=== PATIENT | male | born 1975 | race African-American/Black ===

== ENCOUNTER 2016-03-27 10:32 | Emergency (ER) | payer MEDICAID ==
[2016-03-27 11:38] VITALS: BP 156/99
== END 2016-03-27 13:30 | disposition left against medical advice (07) ==
LOC: ER 10:32
DX: Z53.21 Procedure and treatment not carried out due to patient leaving prior to being seen by health care provider (principal)

== ENCOUNTER 2016-11-02 10:30 | Emergency (ER) | payer MEDICAID ==
[2016-11-02 10:40] VITALS: BP 142/98
--- NOTE | 2016-11-02 10:53 | ERNOTE ---
Date of Service: 11/02/16 Time Seen by Provider: 11/02/16 10:41 Stated Complaint: COLD Presenting Symptoms:: cough, sore throat, runny nose, fever, other - sinus and chest congestion Source: patient Exam Limitations: no limitations Immunizations: IMMUNIZATION HX Immunizations Up to Date Yes History of Influenza Vaccine Yes Hx Pneumococcal Vaccination No Allergies/Adverse Reactions: Allergies shellfish derived Allergy (Mild, Verified 11/02/16 10:39) SWELLING Home Medications: HOME MEDICATIONS Albuterol Sulfate 2.5 mg IH Q4H PRN 03/11/15 [Last Taken Unknown] Budesonide [Pulmicort Respules] 2 ml IH BID 03/11/15 [Last Taken Unknown] Montelukast Sodium [Singulair] 10 mg PO DAILY 05/30/15 [Last Taken Unknown] traMADol HCL [Ultram] 1 tab PO QID #20 tablet 07/02/15 [Last Taken Unknown] Naproxen [Naprosyn] 500 mg PO BID PRN #60 tab 12/02/15 [Last Taken Unknown] tiZANidine HCL [Tizanidine HCl] 2 mg PO QID #20 capsule 12/02/15 [Last Taken Unknown] Doxycycline Monohydrate 100 mg PO BID #20 tablet 11/02/16 [Last Taken Unknown] predniSONE [Prednisone] 3 tab PO DAILY #9 tab 11/02/16 [Last Taken Unknown] - History of Present Ilness Narrative: Pt. with known hx of asthma comes in with c/o cough, chest congestion, fever, sinus congestion, rhinorrhea, and increased use of nebulizer treatments for four days. Pt. has a known history of asthma and states that symptoms are usually controlled with his rescue nebulizer occasionally but it has been worse recently. Pt. denies any CP, NVD, numbness, tingling, headache, or SOB. Pt. denies any alleviating or aggravating factors. Review of Systems - Review of Systems Constitutional: Present: fever, chills, diaphoresis, fatigue, malaise EYE: Present: no symptoms reported ENT: Present: nose congestion, nasal drainage - purulent, sore throat. Absent: ear pain Respiratory: Present: cough, wheezing. Absent: shortness of breath Cardiology: Present: no symptoms reported. Absent: chest pain, palpitations, edema Gastrointestinal/Abdominal: Present: no symptoms reported. Absent: nausea, vomiting, diarrhea Skin: Present: no symptoms reported. Absent: rash, dryness, lesions, change in color Neurological: Present: no symptoms reported. Absent: headache, dizziness/light- headedness, weakness, numbness All Other Systems: All systems neg except as marked - Patient's Past Medical History Patient History - Medical: Chronic Pain Patient History - Cardiac/Respiratory: Asthma Patient History - Cancer: No Hx of Cancer Patient History - Surgical Procedures: No surgical history Patient History - Other: None - Family History Mother Family History - Medical: History Unknown Father Family History - Medical: No pertinent hx - Social History Living Situations: home Abuse History: No History of abuse Psych History: No pertinent hx Does anyone smoke in the home?: Yes Alcohol Use: none Drug Use: none - Immunizations Immunizations Up to Date: Yes Hx Pneumococcal Vaccination: No History of Influenza Vaccine: Yes Physical Exam - Physical Exam General Appearance: Present: wd/wn, alert, no apparent distress Head Exam: Present: normal inspection, no evidence of injury Eye Exam: Normal inspection: bilateral, PERRL: bilateral, EOMI: bilateral Ears, Nose, Throat: Present: nasal congestion, pharyngeal erythema. Absent: abnormal TM (R), abnormal TM (L), dry mucous membranes Neck: Present: normal inspection, nontender. Absent: lymphadenopathy (R), lymphadenopathy (L) Respiratory: Present: no respiratory distress, no accessory muscle use, chest nontender, lungs clear, decreased breath sounds - bases Cardiovascular/Chest: Present: regular rate, rhythm, no murmur, normal peripheral pulses Gastrointestinal/Abdominal: Present: normal bowel sounds, nontender, nondistended, soft, no organomegaly Back Exam: Present: normal inspection Extremity Exam: Present: normal inspection Neurological Exam: Present: alert, oriented, normal mood/affect, no motor/ sensory deficits Skin Exam: Present: normal color, warm/dry. Absent: pallor ED Progress - Results and Orders Patient's Lab Results:: I have reviewed the patient's lab results. - Vital Signs Patient's Vital Signs:: I have reviewed the patient's vital signs. Vital Signs: Vital Signs 11/02/16 10:37 Temperature 36.3 C L Pulse Rate 84 Respiratory 12 Rate Blood Pressure 142/98 O2 Sat by Pulse 98 Oximetry - X-Ray X-Ray #1 X-Ray: chest Interpretation: Interp. by me X-ray Comments: No consolidation or infiltrate. Acute vs chronic reactive airway disease appearance - Progress/Reassessment Chief Complaint: Upper Respiratory Symptoms Progress:: Unchanged Departure - Departure Clinical Impression: Bronchitis Asthma Qualifiers: Asthma severity: mild intermittent Asthma complication type: with acute exacerbation Qualified Code(s): J45.21 - Mild intermittent asthma with (acute) exacerbation Disposition: Home self-care Condition: Good Instructions: Acute Bronchitis Additional Instructions: Please follow up with Dr Prabha byrnes in 2-3 days. Referrals: Pablo Rico MD [Primary Care Provider] - Prescriptions: Doxycycline Monohydrate 100 mg PO BID #20 tablet predniSONE [Prednisone] 3 tab PO DAILY #9 tab
== END 2016-11-02 12:00 | disposition home or self-care (01) ==
LOC: ER 10:30
DX: J40 Bronchitis, not specified as acute or chronic (principal); J45.21 Mild intermittent asthma with (acute) exacerbation

== ENCOUNTER 2016-11-12 09:25 | Day surgery (SDC) | payer MEDICAID ==
--- NOTE | 2016-11-12 10:23 | OR ---
Anesthesia Pre Procedure Eval Pre Procedure Evaluation: Last Vital Signs Temp 36.7 C 11/12/16 09:42 Pulse 74 11/12/16 09:42 Resp 18 11/12/16 09:42 BP 155/89 11/12/16 09:42 Pulse Ox 97 11/12/16 09:42 O2 Oxygen Delivery Method Room Air +PRE PROCEDURE EVALUATION:: DATE: 11/12/2016 TIME: 10:15 INDICATIONS: Radicular low back pain. Disc protrusion L4 5. Left foraminal narrowing at L4 5. PAST MEDICAL HISTORY: Patient has had an epidural steroid injection in June 2015. That injection provided some relief. His back pain has since returned along with left hip and leg numbness at times. EXAM: Lungs clear and equal. Heart rate regular. Procedure risks and benefits were explained to and accepted by the patient. ASSESSMENT OF MEDICAL STATUS: No contraindication to epidural steroid injection. PLANNED PROCEDURE : Fluoroscopy guided epidural steroid injection at L4 5 Home Medications: HOME MEDICATIONS Albuterol Sulfate 2.5 mg IH Q4H PRN 03/11/15 [Last Taken Unknown] Ciclopirox [Penlac 8%] 1 appl TP DAILY 11/10/16 [Last Taken Unknown] Gabapentin 800 mg PO QID 11/10/16 [Last Taken Unknown] Mometasone Furoate [Asmanex] 2 puff IH DAILY 11/10/16 [Last Taken Unknown] Polyethylene Glycol 3350 [Miralax] 17 gm PO DAILY 11/10/16 [Last Taken Unknown] Psyllium Husk (with Sugar) [Metamucil Powder] 1 tbs PO DAILY 11/10/16 [Last Taken Unknown] traMADol HCL [Ultram] 1 tab PO Q6H PRN 11/10/16 [Last Taken Unknown]
[2016-11-12] MEDS: IOPAMIDOL 20 ML VIAL IJ ONE (10:38)
[2016-11-12] MEDS: DEXAMETHASONE SOD PHOSPHATE 10 MG/ML VIAL IJ ONE (10:38)
[2016-11-12] MEDS: LIDOCAINE HCL/PF 5 ML VIAL IJ ONE (10:38)
--- NOTE | 2016-11-12 10:46 | OR ---
Anesthesia Procedure Note - Anesthesia Procedure Note Narrative: Vital Signs - Last Taken Temp 36.7 C 11/12/16 09:42 Pulse 64 11/12/16 10:35 Resp 18 11/12/16 10:35 BP 162/102 11/12/16 10:35 Pulse Ox 97 11/12/16 10:35 O2 Oxygen Delivery Method Room Air 11/12/16 10:43 ANESTHESIA PROCEDURE NOTE Date of Procedure: 11/12/2016 Time of procedure: 10:30. Performed by: Carlyle Cabrera CRNA [employer] Specialist: None. Preprocedure diagnosis: Radicular low back pain. Disc protrusion L4 5. Left foraminal narrowing at L4 5.. Post procedure diagnosis: Same. Procedure: Epidural Steroid Injection at L4 5. Indications: Radicular low back pain. Findings: See below. Details of the procedure: The patient was brought back to operating room #3. The patient was then placed in the prone position. Back was prepped with DuraPrep. Patient was then draped in sterile fashion. Lidocaine 1% was infiltrated to the skin and subcutaneous tissues at the level of the L4 5 interspace. The epidural space was identified using a 20-gauge Tuohy needle with [id number] technique and fluoroscopic guidance. A total of 2 mL of Isovue-200 contrast dye was injected in first the AP and lateral positions to confirm needle placement. Dexamethasone 10 mg + 5 mL of 1% preservative- free lidocaine was administered to the epidural space after negative aspiration for blood and CSF. The Tuohy needle was removed intact. A Band-Aid was applied to the patient's back. The patient was then placed in a supine position for 5 minutes before returning to the ambulatory surgical unit. Total fluoroscopy time was 19.5 seconds. Total dose 10.13 m/gy. EBL: Minimal. Fluids: N/A. Specimen: N/A. Post procedure condition: The patient tolerated the procedure well. No complications were noted. Thank you for this consultation. Carlyle Cabrera CRNA
[2016-11-12 11:17] VITALS: BP 132/99
== END 2016-11-12 09:26 | disposition home or self-care (01) ==
LOC: AMB 09:25
PROVIDERS: ATTEND Allergy & Immunology
PROC: 3E0S3BZ Introduction of Anesthetic Agent into Epidural Space, Percutaneous Approach (ICD-10-PCS; 2016-11-12)
PROC: 3E0S33Z Introduction of Anti-inflammatory into Epidural Space, Percutaneous Approach (ICD-10-PCS; principal; 2016-11-12 09:15)
DX: M51.26 Other intervertebral disc displacement, lumbar region (principal); M48.06 Spinal stenosis, lumbar region; Z68.29 Body mass index [BMI] 29.0-29.9, adult